=== PATIENT | male | born 1970 | race Caucasian/White ===

== ENCOUNTER 2017-12-12 20:57 | Inpatient (IN) | payer MEDICAID ==
[~2017-12-12] VITALS: Ht 182.9 cm; Wt 78.7 kg
[2017-12-12] MEDS ORDERED: HYDROcodone/acetaminophen 10/325mg tab PO ONE (21:55)
[2017-12-12] MEDS ORDERED: normal saline 1000ML IV soln IV ONE (22:45)
[2017-12-12] MEDS ORDERED: vancomycin/NS 1 GM ADD-VANTAGE 250 ML IV ONE (22:45)
[2017-12-12] MEDS ORDERED: CefTRIAXone 2gm/NS 100ml IVPB 100 ML IV ONE (22:45)
[2017-12-12 23:06] LABS: BASOPHILS # (AUTO) 0.1 X10'3 (0-0.2); BASOPHILS % (AUTO) 0.4 % (0-1); EOSINOPHILS # (AUTO) 0.3 X10'3 (0-0.9); EOSINOPHILS % (AUTO) 2.8 % (0-6); HEMATOCRIT 40.5 % (42.0-52.0); HEMOGLOBIN 13.7 g/dl (14.0-17.9); LYMPHOCYTES # (AUTO) 1.9 X10'3 (1.1-4.8); LYMPHOCYTES % (AUTO) 15.6 % (21-51); MEAN CORPUSCULAR HEMOGLOBIN 30.3 PG (27.0-31.0); MEAN CORPUSCULAR HGB CONC 33.8 % (33.0-36.5); MEAN CORPUSCULAR VOLUME 89.8 FL (78-98); MEAN PLATELET VOLUME 7.8 FL (7.4-10.4); MONOCYTES # (AUTO) 1.1 X10'3 (0-0.9); MONOCYTES % (AUTO) 8.9 % (2-12); NEUTROPHILS # (AUTO) 8.9 X10'3 (1.8-7.7); NEUTROPHILS % (AUTO) 72.3 % (42-75); PLATELET COUNT 321 X10'3 (140-440); RED BLOOD COUNT 4.51 X10'6 (4.70-6.10); RED CELL DISTRIBUTION WIDTH 12.9 % (11.5-14.5); WHITE BLOOD COUNT 12.3 X10'3 (4.5-11.0)
[2017-12-12 23:17] LABS: INR 0.9 INR; PARTIAL THROMBOPLASTIN TIME 32 SECONDS (22-32); PROTHROMBIN TIME 9.6 SECONDS (9.0-12.0)
[2017-12-12 23:21] LABS: ALANINE AMINOTRANSFERASE 61 U/L (12-78); ALBUMIN 3.2 G/DL (3.4-5.0); ALBUMIN/GLOBULIN RATIO 0.8 (1.1-1.5); ALKALINE PHOSPHATASE 93 IU/L (46-116); ANION GAP 8 (8-16); ASPARTATE AMINO TRANSFERASE 56 U/L (10-37); BILIRUBIN,TOTAL 0.3 MG/DL (0.1-1.0); BLOOD UREA NITROGEN 19 MG/DL (7-18); BUN/CREATININE RATIO 17.3 (5.4-32.0); CALCIUM 8.8 MG/DL (8.5-10.1); CHLORIDE 106 MMOL/L (99-107); GLUCOSE 149 MG/DL (70-104); MAGNESIUM 2.1 MG/DL (1.5-2.4); POTASSIUM 3.9 MMOL/L (3.5-5.1); SODIUM 143 MMOL/L (135-145); TOTAL CARBON DIOXIDE 29.2 MMOL/L (24-32); TOTAL PROTEIN 7.2 G/DL (6.4-8.2); eGFR 72 ML/MIN
[2017-12-13] MEDS ORDERED: magnesium Cl slow-release 64mg tablet PO PRN (01:35)
[2017-12-13] MEDS ORDERED: HYDROmorphone 1 mg/ml syringe IV PRN ×2 (01:35)
[2017-12-13] MEDS ORDERED: potassium Cl 20 mEq SR tablet PO PRN ×2 (01:35)
[2017-12-13] MEDS ORDERED: HYDROcodone/acetaminophen 5mg/325mg tablet PO PRN (01:35)
[2017-12-13] MEDS ORDERED: mag hydrox/Alum hydrox/simeth 30ml oral suspension PO PRN (01:35)
[2017-12-13] MEDS ORDERED: magnesium hydroxide 30ml (MOM) UD suspension PO PRN (01:35)
[2017-12-13] MEDS ORDERED: magnesium 2GM in 50ml NS 50 ML IV PRN (01:35)
[2017-12-13] MEDS ORDERED: potassium Cl 40MEQ/NS 500ml 500 ML IV PRN ×2 (01:35)
[2017-12-13] MEDS ORDERED: ondansetron/PF 4mg/2ml inj IV PRN (01:35)
[2017-12-13] MEDS ORDERED: magnesium 4gm in 100ml NS 100 ML IV PRN (01:35)
[2017-12-13 01:44] LABS: CLARITY,URINE Clear (Clear); COLOR,URINE Yellow (Yellow); GLUCOSE, URINE Negative (Neg); KETONES,URINE Negative (Neg); LEUKOCYTE ESTERASE ,URINE Negative (Neg); NITRITES, URINE Negative (Neg); OCCULT BLOOD,URINE Negative (Neg); PH,URINE 6.5 (4.8-8.0); PROTEIN,URINE Negative (Neg)
[2017-12-13 01:47] LABS: UA COLLECTION TYPE CLN CATCH MIDSTREAM
[2017-12-13] MEDS: normal saline 1000ml 1,000 ML IV SCH ×3 (02:24→21:18)
[2017-12-13 02:59] VITALS: BP 123/60
[2017-12-13 05:00] VITALS: BP 129/78
[2017-12-13] MEDS: K and/or MAG REPLACEMENT MC SCH (07:51)
[2017-12-13] MEDS: heparin, porcine 5000 units/ml vial SQ SCH ×2 (07:56→20:19)
[2017-12-13] MEDS: acetaminophen 325mg tablet PO PRN ×2 (07:57→16:06)
[2017-12-13 10:00] VITALS: BP 121/71
[2017-12-13] MEDS ORDERED: vancomycin inj 1,250 MG in normal saline 250ml IV soln 250 ML IV SCH (12:00)
[2017-12-13] MEDS ORDERED: vancomycin/NS 1 GM ADD-VANTAGE 250 ML IV SCH (12:00)
[2017-12-13] MEDS ORDERED: NO HOME MEDS (14:05)
[2017-12-13] MEDS ORDERED: LACTOBACILLUS RHAMNOSUS GG 15 billion unit sprinkle caps PO SCH (17:30)
[2017-12-13 18:31] VITALS: BP 118/69
[2017-12-13] MEDS ORDERED: CefTRIAXone 2gm/NS 100ml IVPB 100 ML IV SCH (20:00)
[2017-12-13] MEDS ORDERED: ciprofloxacin 500MG tablet PO SCH (20:00)
[2017-12-13] MEDS ORDERED: ciprofloxacin 250mg tablet PO SCH (20:05)
[2017-12-13] MEDS: ciprofloxacin 250mg tablet PO SCH (20:19)
[2017-12-13] MEDS ORDERED: temazepam 15mg capsule PO PRN (21:00)
[2017-12-13 22:00] VITALS: BP 109/74
[2017-12-14] MEDS: HYDROcodone/acetaminophen 10/325mg tab PO PRN ×2 (01:53→17:21)
[2017-12-14 06:00] VITALS: BP 121/76
[2017-12-14 07:06] LABS: BASOPHILS # (AUTO) 0.1 X10'3 (0-0.2); BASOPHILS % (AUTO) 0.5 % (0-1); EOSINOPHILS % (AUTO) 0.1 % (0-6); HEMATOCRIT 41.5 % (42.0-52.0); HEMOGLOBIN 13.8 g/dl (14.0-17.9); LYMPHOCYTES # (AUTO) 1.9 X10'3 (1.1-4.8); LYMPHOCYTES % (AUTO) 11.2 % (21-51); MEAN CORPUSCULAR HEMOGLOBIN 30.4 PG (27.0-31.0); MEAN CORPUSCULAR HGB CONC 33.3 % (33.0-36.5); MEAN CORPUSCULAR VOLUME 91.3 FL (78-98); MEAN PLATELET VOLUME 7.9 FL (7.4-10.4); MONOCYTES # (AUTO) 1.7 X10'3 (0-0.9); NEUTROPHILS # (AUTO) 13.5 X10'3 (1.8-7.7); NEUTROPHILS % (AUTO) 78.2 % (42-75); PLATELET COUNT 299 X10'3 (140-440); RED BLOOD COUNT 4.55 X10'6 (4.70-6.10); RED CELL DISTRIBUTION WIDTH 12.8 % (11.5-14.5); WHITE BLOOD COUNT 17.2 X10'3 (4.5-11.0)
[2017-12-14 07:36] LABS: ALANINE AMINOTRANSFERASE 47 U/L (12-78); ALBUMIN 2.6 G/DL (3.4-5.0); ALBUMIN/GLOBULIN RATIO 0.6 (1.1-1.5); ALKALINE PHOSPHATASE 84 IU/L (46-116); ANION GAP 6 (8-16); ASPARTATE AMINO TRANSFERASE 19 U/L (10-37); BILIRUBIN,TOTAL 0.5 MG/DL (0.1-1.0); BLOOD UREA NITROGEN 12 MG/DL (7-18); CALCIUM 8.5 MG/DL (8.5-10.1); CHLORIDE 106 MMOL/L (99-107); GLUCOSE 97 MG/DL (70-104); MAGNESIUM 1.7 MG/DL (1.5-2.4); SODIUM 141 MMOL/L (135-145); TOTAL CARBON DIOXIDE 29.4 MMOL/L (24-32); TOTAL PROTEIN 6.8 G/DL (6.4-8.2); eGFR > 90 ML/MIN
[2017-12-14] MEDS: LACTOBACILLUS RHAMNOSUS GG 15 billion unit sprinkle caps PO SCH (07:46)
[2017-12-14] MEDS: heparin, porcine 5000 units/ml vial SQ SCH ×2 (07:47→19:38)
[2017-12-14] MEDS: ciprofloxacin 250mg tablet PO SCH ×2 (07:47→19:42)
[2017-12-14] MEDS: normal saline 1000ml 1,000 ML IV SCH ×2 (07:54→17:32)
[2017-12-14] MEDS: K and/or MAG REPLACEMENT MC SCH (07:58)
[2017-12-14 11:00] VITALS: BP 115/69
[2017-12-14 18:00] VITALS: BP 113/80
[2017-12-14 22:00] VITALS: BP 128/77
[2017-12-14] MEDS ORDERED: VANCOMYCIN LEVEL IV NR (23:30)
[2017-12-15] MEDS: normal saline 1000ml 1,000 ML IV SCH ×2 (04:06→13:32)
[2017-12-15 05:57] LABS: BASOPHILS # (AUTO) 0.1 X10'3 (0-0.2); EOSINOPHILS # (AUTO) 0.2 X10'3 (0-0.9); EOSINOPHILS % (AUTO) 1.3 % (0-6); HEMATOCRIT 40.9 % (42.0-52.0); HEMOGLOBIN 13.8 g/dl (14.0-17.9); LYMPHOCYTES # (AUTO) 2.1 X10'3 (1.1-4.8); LYMPHOCYTES % (AUTO) 14.4 % (21-51); MEAN CORPUSCULAR HEMOGLOBIN 30.5 PG (27.0-31.0); MEAN CORPUSCULAR HGB CONC 33.8 % (33.0-36.5); MEAN CORPUSCULAR VOLUME 90.4 FL (78-98); MEAN PLATELET VOLUME 7.9 FL (7.4-10.4); MONOCYTES # (AUTO) 1.3 X10'3 (0-0.9); NEUTROPHILS # (AUTO) 10.8 X10'3 (1.8-7.7); NEUTROPHILS % (AUTO) 74.3 % (42-75); PLATELET COUNT 334 X10'3 (140-440); RED BLOOD COUNT 4.52 X10'6 (4.70-6.10); RED CELL DISTRIBUTION WIDTH 12.8 % (11.5-14.5); WHITE BLOOD COUNT 14.6 X10'3 (4.5-11.0)
[2017-12-15 06:00] VITALS: BP 119/70
[2017-12-15 06:26] LABS: ALANINE AMINOTRANSFERASE 51 U/L (12-78); ALBUMIN 2.5 G/DL (3.4-5.0); ALBUMIN/GLOBULIN RATIO 0.6 (1.1-1.5); ALKALINE PHOSPHATASE 84 IU/L (46-116); ANION GAP 7 (8-16); ASPARTATE AMINO TRANSFERASE 26 U/L (10-37); BILIRUBIN,TOTAL 0.2 MG/DL (0.1-1.0); BLOOD UREA NITROGEN 12 MG/DL (7-18); BUN/CREATININE RATIO 13.3 (5.4-32.0); CALCIUM 8.4 MG/DL (8.5-10.1); CHLORIDE 106 MMOL/L (99-107); GLUCOSE 111 MG/DL (70-104); MAGNESIUM 1.9 MG/DL (1.5-2.4); POTASSIUM 3.7 MMOL/L (3.5-5.1); SODIUM 142 MMOL/L (135-145); TOTAL CARBON DIOXIDE 28.6 MMOL/L (24-32); TOTAL PROTEIN 6.8 G/DL (6.4-8.2); eGFR > 90 ML/MIN
[2017-12-15] MEDS: K and/or MAG REPLACEMENT MC SCH (08:00)
[2017-12-15] MEDS: LACTOBACILLUS RHAMNOSUS GG 15 billion unit sprinkle caps PO SCH (08:14)
[2017-12-15] MEDS: ciprofloxacin 250mg tablet PO SCH (08:15)
[2017-12-15] MEDS: heparin, porcine 5000 units/ml vial SQ SCH (08:16)
[2017-12-15 10:00] VITALS: BP 138/77
[2017-12-15] MEDS ORDERED: LEVO500T2 PO (17:38)
[2017-12-15] MEDS ORDERED: SULF1TAB49 PO (17:38)
== END 2017-12-15 18:00 | disposition left against medical advice (07) | DRG 501 ==
LOC: ER 20:58 → ED HOLD 12-13 01:32 → ORTHO 4S 12-13 02:25
PROVIDERS: ADMIT Internal Medicine; ATTEND Internal Medicine
DX: N45.1 Epididymitis (principal); R65.10 Systemic inflammatory response syndrome (SIRS) of non-infectious origin without acute organ dysfunction; E86.0 Dehydration; F41.9 Anxiety disorder, unspecified; D64.9 Anemia, unspecified; N43.3 Hydrocele, unspecified; R03.0 Elevated blood-pressure reading, without diagnosis of hypertension; R00.0 Tachycardia, unspecified; F17.210 Nicotine dependence, cigarettes, uncomplicated
CPT/HCPCS: 36415; 71045; 76870; 80053; 81003; 83605; 83735; 84145; 85025; 85610; 85730; 87040; 87070; 87491; 93005; 96365; 96367; 99285; A6212; A6258; J0696; J1644; J3370; J7030

== ENCOUNTER 2019-03-14 21:49 | Emergency (ER) | payer MEDICAID ==
[~2019-03-14] VITALS: Ht 182.9 cm; Wt 64.9 kg
[~2019-03-14 21:49] MED LIST: IBUP-1986 PO; NO HOME MEDS
[2019-03-14 22:48] LABS: BASOPHILS % (AUTO) 0.1 % (0-1); EOSINOPHILS % (AUTO) 0.1 % (0-6); HEMATOCRIT 49.1 % (42.0-52.0); HEMOGLOBIN 16.5 g/dl (14.0-17.9); LYMPHOCYTES # (AUTO) 0.7 X10'3 (1.1-4.8); LYMPHOCYTES % (AUTO) 4.2 % (21-51); MEAN CORPUSCULAR HEMOGLOBIN 30.4 PG (27.0-31.0); MEAN CORPUSCULAR HGB CONC 33.6 g/dL (33.0-36.5); MEAN CORPUSCULAR VOLUME 90.4 FL (78-98); MONOCYTES # (AUTO) 0.7 X10'3 (0-0.9); MONOCYTES % (AUTO) 4.1 % (2-12); NEUTROPHILS # (AUTO) 15.8 X10'3 (1.8-7.7); NEUTROPHILS % (AUTO) 91.5 % (42-75); PLATELET COUNT 238 X10'3 (140-440); RED BLOOD COUNT 5.43 X10'6 (4.70-6.10); RED CELL DISTRIBUTION WIDTH 12.8 % (11.5-14.5); WHITE BLOOD COUNT 17.3 X10'3 (4.5-11.0)
[2019-03-14] MEDS ORDERED: normal saline 1000ML IV soln IV ONE (22:50)
[2019-03-14] MEDS ORDERED: CefTRIAXone 2gm/D5W 50ml 50 ML IV ONE (22:50)
[2019-03-14] MEDS ORDERED: acetaminophen 325mg tablet PO STA (22:50)
[2019-03-14 23:10] LABS: INR 1.1 INR; PARTIAL THROMBOPLASTIN TIME 36 SECONDS (22-32)
--- NOTE | 2019-03-14 23:11 | NUR ---
PT UNABLE TO VOID FOR UA. URINAL AT BEDSIDE FOR PT.
[2019-03-14 23:43] LABS: ALANINE AMINOTRANSFERASE 41 U/L (12-78); ALBUMIN 3.6 G/DL (3.4-5.0); ALBUMIN/GLOBULIN RATIO 0.9 (1.1-1.5); ALKALINE PHOSPHATASE 85 IU/L (46-116); ANION GAP 9 (8-16); ASPARTATE AMINO TRANSFERASE 31 U/L (10-37); BILIRUBIN,TOTAL 0.6 MG/DL (0.1-1.0); BLOOD UREA NITROGEN 19 MG/DL (7-18); BUN/CREATININE RATIO 13.2 (5.4-32.0); CALCIUM 9.2 MG/DL (8.5-10.1); CHLORIDE 97 MMOL/L (99-107); CREATININE 1.44 MG/DL (0.60-1.10); GLUCOSE 107 MG/DL (70-104); SODIUM 131 MMOL/L (135-145); TOTAL CARBON DIOXIDE 25.4 MMOL/L (24-32); TOTAL PROTEIN 7.5 G/DL (6.4-8.2); eGFR 53 ML/MIN
[2019-03-15 00:05] LABS: CLARITY,URINE CLEAR (Clear); COLOR,URINE YELLOW (Yellow); GLUCOSE, URINE NEGATIVE (Neg); KETONES,URINE 15 mg/dl (Neg); LEUKOCYTE ESTERASE ,URINE NEGATIVE (Neg); NITRITES, URINE NEGATIVE (Neg); OCCULT BLOOD,URINE NEGATIVE (Neg); PROTEIN,URINE 30 mg/dl (Neg)
[2019-03-15 00:15] LABS: UA COLLECTION TYPE CLN CATCH MIDSTREAM
[2019-03-15 00:16] LABS: BACTERIA,URINE FEW /HPF (Neg); MUCUS STRANDS FEW /LPF (Neg); RBC,URINE NONE SEEN /HPF (0-2); SQUAMOUS EPITHELIAL CELL,UR FEW /LPF (FEW); WBC,URINE 0-4 /HPF (0-4)
[2019-03-15] MEDS ORDERED: SULF1TAB49 PO (00:27)
[2019-03-15] MEDS ORDERED: CEPH500C5 PO (00:27)
[2019-03-15 00:32] LABS: URINE AMPHETAMINE SCREEN POSITIVE (Neg); URINE BARBITUATE SCREEN NEGATIVE (Neg); URINE BENZODIAZEPINES SCREEN NEGATIVE (Neg); URINE CANNABINOID SCREEN NEGATIVE (Neg); URINE COCAINE SCREEN NEGATIVE (Neg); URINE METHADONE SCREEN NEGATIVE (Neg); URINE OPIATE SCREEN NEGATIVE (Neg); URINE PHENCYCLIDINE SCREEN NEGATIVE (Neg)
[2019-03-15 00:37] VITALS: BP 127/87
== END 2019-03-15 00:44 | disposition home or self-care (01) ==
LOC: ER 21:49
DX: L03.116 Cellulitis of left lower limb (principal); R42 Dizziness and giddiness; R50.9 Fever, unspecified; R00.0 Tachycardia, unspecified; R22.2 Localized swelling, mass and lump, trunk; F15.90 Other stimulant use, unspecified, uncomplicated; Z79.2 Long term (current) use of antibiotics
CPT/HCPCS: 36415; 71045; 80053; 80305; 81001; 83605; 84145; 84484; 85025; 85610; 85730; 87040; 93005; 96365; 99284; J0696; J7030; 81003

== ENCOUNTER 2019-11-11 19:51 | Inpatient (IN) | payer MEDICAID ==
[~2019-11-11] VITALS: Ht 182.9 cm; Wt 88.2 kg
--- NOTE | 2019-11-11 20:14 | NUR ---
PT REPORTS TO METH USE 2 DAYS AGO.
[2019-11-11] MEDS ORDERED: normal saline 1000ml 1,000 ML IV ONE (20:20)
[2019-11-11] MEDS ORDERED: LORazepam 2 mg/ml vial IV ONE (20:20)
[2019-11-11] MEDS ORDERED: ondansetron/PF 4mg/2ml inj IV ONE (20:20)
[2019-11-11] MEDS ORDERED: ketorolac trometh. 30mg/ml inj. IV ONE (20:20)
[2019-11-11 20:23] LABS: BASOPHILS # (AUTO) 0.1 X10'3 (0-0.2); BASOPHILS % (AUTO) 0.5 % (0-1); EOSINOPHILS # (AUTO) 0.1 X10'3 (0-0.9); EOSINOPHILS % (AUTO) 0.5 % (0-6); HEMATOCRIT 41.5 % (42.0-52.0); HEMOGLOBIN 14.1 g/dl (14.0-17.9); LYMPHOCYTES # (AUTO) 1.2 X10'3 (1.1-4.8); LYMPHOCYTES % (AUTO) 8.8 % (21-51); MEAN CORPUSCULAR HGB CONC 33.9 g/dL (33.0-36.5); MEAN CORPUSCULAR VOLUME 91.4 FL (78-98); MEAN PLATELET VOLUME 8.3 FL (7.4-10.4); MONOCYTES # (AUTO) 1.5 X10'3 (0-0.9); MONOCYTES % (AUTO) 11.5 % (2-12); NEUTROPHILS # (AUTO) 10.6 X10'3 (1.8-7.7); NEUTROPHILS % (AUTO) 78.7 % (42-75); PLATELET COUNT 236 X10'3 (140-440); RED BLOOD COUNT 4.54 X10'6 (4.70-6.10); RED CELL DISTRIBUTION WIDTH 13.1 % (11.5-14.5); WHITE BLOOD COUNT 13.4 X10'3 (4.5-11.0)
--- NOTE | 2019-11-11 20:31 | NUR ---
Pt. transferred to CT at this time by tech.
[2019-11-11 20:40] LABS: ALANINE AMINOTRANSFERASE 323 U/L (12-78); ALBUMIN 4.1 G/DL (3.4-5.0); ALBUMIN/GLOBULIN RATIO 1.3 (1.1-1.5); ALKALINE PHOSPHATASE 68 IU/L (46-116); ANION GAP 13 (8-16); ASPARTATE AMINO TRANSFERASE 632 U/L (10-37); BILIRUBIN,TOTAL 1.5 MG/DL (0.1-1.0); BLOOD UREA NITROGEN 22 MG/DL (7-18); BUN/CREATININE RATIO 20.4 (5.4-32.0); CHLORIDE 99 MMOL/L (99-107); CREATININE 1.08 MG/DL (0.60-1.10); GLUCOSE 91 MG/DL (70-104); LIPASE 61 U/L (73-393); POTASSIUM 3.5 MMOL/L (3.5-5.1); SODIUM 135 MMOL/L (135-145); TOTAL CARBON DIOXIDE 23.4 MMOL/L (24-32); TOTAL PROTEIN 7.3 G/DL (6.4-8.2); eGFR 73 ML/MIN
--- NOTE | 2019-11-11 20:42 | NUR ---
Pt. returned to ED room 1 at this time.
[2019-11-11 21:03] LABS: URINE AMPHETAMINE SCREEN POSITIVE (Neg); URINE BARBITUATE SCREEN NEGATIVE (Neg); URINE BENZODIAZEPINES SCREEN NEGATIVE (Neg); URINE CANNABINOID SCREEN NEGATIVE (Neg); URINE COCAINE SCREEN NEGATIVE (Neg); URINE METHADONE SCREEN NEGATIVE (Neg); URINE OPIATE SCREEN NEGATIVE (Neg); URINE PHENCYCLIDINE SCREEN NEGATIVE (Neg)
[2019-11-11 21:16] LABS: CLARITY,URINE CLEAR (Clear); COLOR,URINE Amber (Yellow); GLUCOSE, URINE Negative (Neg); PROTEIN,URINE Trace mg/dl (Neg); UA COLLECTION TYPE CLN CATCH MIDSTREAM
[2019-11-11 21:17] LABS: KETONES,URINE >=80 mg/dl (Neg); LEUKOCYTE ESTERASE ,URINE NEGATIVE (Neg); NITRITES, URINE NEGATIVE (Neg); OCCULT BLOOD,URINE MODERATE (Neg)
[2019-11-11] MEDS ORDERED: normal saline 1000ML IV soln IVB ONE (21:25)
[2019-11-11] MEDS ORDERED: piperacillin/tazo 4.5gm/100ml 100 ML IV SCH (21:25)
[2019-11-11] MEDS ORDERED: morphine 4 MG/ML inj SYRINge IV ONE (21:25)
[2019-11-11 21:28] LABS: BACTERIA,URINE NONE SEEN /HPF (Neg); MUCUS STRANDS MANY /LPF (Neg); RBC,URINE 0-2 /HPF (0-2); SQUAMOUS EPITHELIAL CELL,UR NONE SEEN /LPF (FEW); WBC,URINE 0-4 /HPF (0-4)
[2019-11-11] MEDS ORDERED: piperacillin/tazo 4.5gm/100ml 100 ML IV ONE (21:31)
[2019-11-11] MEDS ORDERED: ringers solution, lacted 1,000 ML IV SCH (21:38)
[2019-11-11] MEDS ORDERED: fentaNYL/PF 50MCG/1 ML 2ML syringe IV PRN ×2 (21:40)
[2019-11-11] MEDS ORDERED: ondansetron/PF 4mg/2ml inj IV PRN ×2 (21:40→22:20)
[2019-11-11] MEDS ORDERED: morphine 4 MG/ML inj SYRINge IV PRN ×2 (21:40)
[2019-11-11] MEDS ORDERED: hydrALAZINE 20mg/ml inj. IV PRN (21:40)
[2019-11-11] MEDS ORDERED: labetalol 20mg/4ml (5mg/ml) syringe IV PRN (21:40)
[2019-11-11] MEDS ORDERED: rocuronium 10mg/ml inj IV ONE (22:06)
[2019-11-11] MEDS ORDERED: ondansetron/PF 4mg/2ml inj ONE (22:06)
[2019-11-11] MEDS ORDERED: midazolam 2 mg/2 ml injection ONE (22:06)
[2019-11-11] MEDS ORDERED: LIDOcaine 2% (20mg/ml) 5ml vial ONE (22:06)
[2019-11-11] MEDS ORDERED: dexamethasone sod phosphate 4mg/ml inj. ONE (22:06)
[2019-11-11] MEDS ORDERED: propofol inj 20 ML IV ONE (22:06)
[2019-11-11] MEDS ORDERED: fentaNYL/PF 50MCG/1 ML 2ML syringe ONE (22:06)
[2019-11-11] MEDS ORDERED: BUPIVAcaine/PF 2.5 mg/ml (0.25%) 30ml vial ONE (22:10)
--- NOTE | 2019-11-11 22:17 | NUR ---
OR TECHS ARRIVED. PT PREPPED AND TAKEN FOR SURGERY.
[2019-11-11] MEDS ORDERED: magnesium 4gm in 100ml NS 100 ML IV PRN (22:20)
[2019-11-11] MEDS ORDERED: potassium CL 10mEq/100ml bag 100 ML IV PRN ×2 (22:20)
[2019-11-11] MEDS ORDERED: acetaminophen 325mg tablet PO PRN (22:20)
[2019-11-11] MEDS ORDERED: potassium Cl 20 mEq SR tablet PO PRN ×2 (22:20)
[2019-11-11] MEDS ORDERED: magnesium Cl slow-release 64mg tablet PO PRN (22:20)
[2019-11-11] MEDS ORDERED: magnesium 2GM in 50ml NS 50 ML IV PRN (22:20)
[2019-11-11] MEDS ORDERED: glycopyrrolate 0.2mg/ml inj ONE (22:30)
[2019-11-11] MEDS ORDERED: sevoflurane 250ml liquid IH ONE (22:30)
[2019-11-11] MEDS ORDERED: ceFOXitin 2 GM ADDVANTGE BAG 50 ML IV ONE (22:33)
[2019-11-11] MEDS ORDERED: sugammadex 200mg/2ml injection IV ONE (23:07)
[2019-11-11 23:25] VITALS: BP 132/83
--- NOTE | 2019-11-11 23:25 | NUR ---
Received from OR via , accompanied by Anesthesiologist DR NIXON and report given by Anesthesiolgist. PT IS NOT RESPONDING TO VOICE, SNORING RESPIRATIONS, ORAL AIRWAY IN PLACE, SKIN WARM AND PINK, VSS, BILAT UE'S SCATTERED SCRATCHES, RIGHT UPPER THIGH/GROIN RED BRUISE, CROW SKIN, PIV RIGHT AC 20G, SCD'S, NO C/O PAIN.
[2019-11-11 23:35] VITALS: BP 129/81
--- NOTE | 2019-11-11 23:40 | NUR ---
ORAL AIRWAY REMOVED, PT MOVING EXT X 4, WAKING TO VOICE.
[2019-11-11 23:45] VITALS: BP 124/68
--- NOTE | 2019-11-11 23:51 | NUR ---
Received report from SAL Whitaker. Awaiting patient arrival to the unit.
[2019-11-11 23:55] VITALS: BP 129/65
--- NOTE | 2019-11-11 23:55 | NUR ---
Report called to receiving nurse. Transferred via BED Belongings . Special Issues communicated to receiving nurse ANA HUANG. PT IS SLEEPING WITH SNORING RESP, RESPONDS TO VOICE, SKIN WARM AND PINK, MOVING EXT X4, PIV PATENT, 3 BA'S ON ABD CD, NO C/O PAIN, VSS, MEETS DISCHARGE CRITERIA.
--- NOTE | 2019-11-12 00:20 | NUR ---
Patient arrived to the floor on hospital bed, placed in room 340A. Patient is resting comfortably on room air, in no apparent distress. Call light and items of frequent use within reach, will continue to monitor.
[2019-11-12 00:25] VITALS: BP 120/77
[2019-11-12] MEDS: normal saline 1000ml 1,000 ML IV SCH ×2 (04:56→08:19)
[2019-11-12 05:25] LABS: BASOPHILS % (AUTO) 0.3 % (0-1); EOSINOPHILS % (AUTO) 0 % (0-6); HEMATOCRIT 38.6 % (42.0-52.0); LYMPHOCYTES # (AUTO) 0.3 X10'3 (1.1-4.8); MEAN CORPUSCULAR HEMOGLOBIN 31.5 PG (27.0-31.0); MEAN CORPUSCULAR HGB CONC 33.7 g/dL (33.0-36.5); MEAN CORPUSCULAR VOLUME 93.4 FL (78-98); MEAN PLATELET VOLUME 9.1 FL (7.4-10.4); MONOCYTES % (AUTO) 7.8 % (2-12); NEUTROPHILS # (AUTO) 11.6 X10'3 (1.8-7.7); NEUTROPHILS % (AUTO) 89.9 % (42-75); PLATELET COUNT 191 X10'3 (140-440); RED BLOOD COUNT 4.13 X10'6 (4.70-6.10); RED CELL DISTRIBUTION WIDTH 13.2 % (11.5-14.5); WHITE BLOOD COUNT 12.9 X10'3 (4.5-11.0)
[2019-11-12 05:42] LABS: ALANINE AMINOTRANSFERASE 246 U/L (12-78); ALBUMIN 3.2 G/DL (3.4-5.0); ALBUMIN/GLOBULIN RATIO 1.1 (1.1-1.5); ALKALINE PHOSPHATASE 59 IU/L (46-116); ANION GAP 11 (8-16); ASPARTATE AMINO TRANSFERASE 387 U/L (10-37); BILIRUBIN,TOTAL 1.2 MG/DL (0.1-1.0); BLOOD UREA NITROGEN 18 MG/DL (7-18); BUN/CREATININE RATIO 17.6 (5.4-32.0); CALCIUM 8.1 MG/DL (8.5-10.1); CHLORIDE 104 MMOL/L (99-107); CREATININE 1.02 MG/DL (0.60-1.10); GLUCOSE 143 MG/DL (70-104); MAGNESIUM 1.8 MG/DL (1.5-2.4); POTASSIUM 3.8 MMOL/L (3.5-5.1); SODIUM 139 MMOL/L (135-145); TOTAL CARBON DIOXIDE 24.1 MMOL/L (24-32); TOTAL PROTEIN 6.1 G/DL (6.4-8.2); eGFR 78 ML/MIN
--- NOTE | 2019-11-12 06:30 | NUR ---
Problems reprioritized. Patient report given, questions answered & plan of care reviewed with SAL Carmona.
--- NOTE | 2019-11-12 06:30 | NUR ---
Patient in room [facility] 340. I have received report from Bryanna HUANG and had the opportunity to ask questions and assume patient care.
[2019-11-12 06:59] VITALS: BP 116/67
[2019-11-12] MEDS ORDERED: K and/or MAG REPLACEMENT MC SCH (08:00)
[2019-11-12] MEDS ORDERED: HYDR-4383 PO ×2 (10:38→10:40)
[2019-11-12 11:59] VITALS: BP 119/71
--- NOTE | 2019-11-12 14:03 | NUR ---
Patient discharged with all belongings. W/C to front lobby. Discharge paperwork gone over with pt and signed. Pt has friend to take him home.
== END 2019-11-12 14:02 | disposition home or self-care (01) | DRG 710 ==
LOC: ER 19:52 → SUR 3N 22:19 → OBSVTOIN 22:19 → UNDOADMOB 23:13 → SUR 3N 23:13
PROVIDERS: ADMIT Internal Medicine; ATTEND Family Medicine
PROC: 0DTJ4ZZ Resection of Appendix, Percutaneous Endoscopic Approach (ICD-10-PCS; principal; 2019-11-11 22:30)
DX: A41.9 Sepsis, unspecified organism (principal); G93.41 Metabolic encephalopathy; K35.30 Acute appendicitis with localized peritonitis, without perforation or gangrene; F15.90 Other stimulant use, unspecified, uncomplicated; F17.210 Nicotine dependence, cigarettes, uncomplicated; J45.909 Unspecified asthma, uncomplicated; N30.20 Other chronic cystitis without hematuria; Z66 Do not resuscitate; R94.5 Abnormal results of liver function studies
CPT/HCPCS: 36415; 74176; 80053; 80305; 81001; 82948; 83605; 83690; 83735; 85025; 86885; 86900; 86901; 87040; 87081; 96361; 96374; 96375; 99285; A4215; A4618; A7000; C9399; G0378; J0694; J1100; J1885; J2001; J2060; J2250; J2270; J2405; J2543; J2704; J3010; J3490; J7030; J7120

== ENCOUNTER 2019-11-13 18:48 | Emergency (ER) | payer MEDICAID ==
[~2019-11-13] VITALS: Ht 182.9 cm; Wt 88.0 kg
[~2019-11-13 18:48] MED LIST changes: +HYDR-4383 PO
[2019-11-13 19:29] LABS: BASOPHILS # (AUTO) 0.1 X10'3 (0-0.2); BASOPHILS % (AUTO) 0.4 % (0-1); EOSINOPHILS # (AUTO) 0.1 X10'3 (0-0.9); EOSINOPHILS % (AUTO) 0.4 % (0-6); LYMPHOCYTES # (AUTO) 0.5 X10'3 (1.1-4.8); LYMPHOCYTES % (AUTO) 3.8 % (21-51); MEAN CORPUSCULAR HEMOGLOBIN 31.8 PG (27.0-31.0); MEAN CORPUSCULAR HGB CONC 34.3 g/dL (33.0-36.5); MEAN CORPUSCULAR VOLUME 92.7 FL (78-98); MEAN PLATELET VOLUME 8.5 FL (7.4-10.4); MONOCYTES # (AUTO) 1.1 X10'3 (0-0.9); MONOCYTES % (AUTO) 8.4 % (2-12); NEUTROPHILS # (AUTO) 11.3 X10'3 (1.8-7.7); PLATELET COUNT 228 X10'3 (140-440); RED BLOOD COUNT 4.42 X10'6 (4.70-6.10); RED CELL DISTRIBUTION WIDTH 13.4 % (11.5-14.5)
[2019-11-13 19:42] LABS: PARTIAL THROMBOPLASTIN TIME 31 SECONDS (22-32)
[2019-11-13 19:46] LABS: ALANINE AMINOTRANSFERASE 168 U/L (12-78); ALBUMIN 3.1 G/DL (3.4-5.0); ALBUMIN/GLOBULIN RATIO 0.8 (1.1-1.5); ALKALINE PHOSPHATASE 70 IU/L (46-116); ANION GAP 4 (8-16); ASPARTATE AMINO TRANSFERASE 105 U/L (10-37); BILIRUBIN,TOTAL 0.7 MG/DL (0.1-1.0); BLOOD UREA NITROGEN 15 MG/DL (7-18); BUN/CREATININE RATIO 13.8 (5.4-32.0); CHLORIDE 101 MMOL/L (99-107); CREATININE 1.09 MG/DL (0.60-1.10); GLUCOSE 133 MG/DL (70-104); POTASSIUM 3.6 MMOL/L (3.5-5.1); SODIUM 137 MMOL/L (135-145); TOTAL CARBON DIOXIDE 31.8 MMOL/L (24-32); eGFR 72 ML/MIN
[2019-11-13] MEDS ORDERED: normal saline 1000ML IV soln IVB ONE (20:20)
[2019-11-13 20:37] LABS: CLARITY,URINE SLIGHTLY CLOUDY (Clear); COLOR,URINE AMBER (Yellow); GLUCOSE, URINE NEGATIVE (Neg); KETONES,URINE 15 mg/dl (Neg); LEUKOCYTE ESTERASE ,URINE NEGATIVE (Neg); NITRITES, URINE NEGATIVE (Neg); OCCULT BLOOD,URINE TRACE-INTACT (Neg); PROTEIN,URINE 100 mg/dl (Neg); UROBILINOGEN,URINE >=8.0 E.U/dL (0.2-1.0)
[2019-11-13 20:38] LABS: UA COLLECTION TYPE URINAL
[2019-11-13 21:07] LABS: RBC,URINE 0-2 /HPF (0-2); WBC,URINE 0-4 /HPF (0-4)
[2019-11-13 21:08] LABS: BACTERIA,URINE NONE SEEN /HPF (Neg); MUCUS STRANDS MANY /LPF (Neg); SPERM FEW /HPF (NEGATIVE); SQUAMOUS EPITHELIAL CELL,UR FEW /LPF (FEW)
[2019-11-13 21:49] VITALS: BP 142/87
--- NOTE | 2019-11-13 21:50 | NUR ---
DR ASKEW GAVE VERBAL TO DC 2ND LITER NS, AWARE HR 90
== END 2019-11-13 21:51 | disposition home or self-care (01) ==
LOC: ER 18:49
DX: G89.18 Other acute postprocedural pain (principal); F15.90 Other stimulant use, unspecified, uncomplicated; Z90.49 Acquired absence of other specified parts of digestive tract
CPT/HCPCS: 36415; 71045; 80053; 81001; 83605; 84145; 85025; 85610; 85730; 87040; 99284; J7030

== ENCOUNTER 2023-03-07 14:45 | Emergency (ER) | payer MEDICAID ==
[~2023-03-07] VITALS: Ht 182.9 cm; Wt 90.0 kg
[~2023-03-07 14:45] MED LIST changes: -NO HOME MEDS
[2023-03-07 14:47] VITALS: BP 140/88
[2023-03-07 15:17] LABS: BASOPHILS # (AUTO) 0.1 X10'3 (0-0.2); BASOPHILS % (AUTO) 0.6 % (0-1); EOSINOPHILS # (AUTO) 0.1 X10'3 (0-0.9); EOSINOPHILS % (AUTO) 0.4 % (0-6); HEMATOCRIT 48.8 % (42.0-52.0); HEMOGLOBIN 16.4 g/dl (14.0-17.9); LYMPHOCYTES # (AUTO) 2.1 X10'3 (1.1-4.8); LYMPHOCYTES % (AUTO) 14.8 % (21-51); MEAN CORPUSCULAR HEMOGLOBIN 30.6 PG (27.0-31.0); MEAN CORPUSCULAR HGB CONC 33.5 g/dL (33.0-36.5); MEAN CORPUSCULAR VOLUME 91.3 FL (78-98); MEAN PLATELET VOLUME 8.2 FL (7.4-10.4); MONOCYTES # (AUTO) 0.9 X10'3 (0-0.9); MONOCYTES % (AUTO) 6.4 % (2-12); NEUTROPHILS # (AUTO) 10.9 X10'3 (1.8-7.7); NEUTROPHILS % (AUTO) 77.8 % (42-75); PLATELET COUNT 324 X10'3 (140-440); RED BLOOD COUNT 5.35 X10'6 (4.70-6.10); RED CELL DISTRIBUTION WIDTH 13.6 % (11.5-14.5)
[2023-03-07 15:24] LABS: CLARITY,URINE CLOUDY (Clear); COLOR,URINE YELLOW (Yellow); GLUCOSE, URINE NEGATIVE (Neg); KETONES,URINE NEGATIVE (Neg); LEUKOCYTE ESTERASE ,URINE NEGATIVE (Neg); NITRITES, URINE NEGATIVE (Neg); OCCULT BLOOD,URINE NEGATIVE (Neg); PH,URINE 7.5 (4.8-8.0); PROTEIN,URINE NEGATIVE (Neg); UROBILINOGEN,URINE 0.2 E.U/dL (0.2-1.0)
[2023-03-07 15:31] LABS: ALANINE AMINOTRANSFERASE 50 U/L (12-78); ALBUMIN 4.3 G/DL (3.4-5.0); ALBUMIN/GLOBULIN RATIO 1.2 (1.1-1.5); ALKALINE PHOSPHATASE 88 IU/L (46-116); ANION GAP 14 (8-16); ASPARTATE AMINO TRANSFERASE 36 U/L (10-37); BILIRUBIN,TOTAL 0.6 MG/DL (0.1-1.0); BLOOD UREA NITROGEN 16 MG/DL (7-18); CALCIUM 9.4 MG/DL (8.5-10.1); CHLORIDE 100 MMOL/L (99-107); CREATININE 1.33 MG/DL (0.60-1.10); GLUCOSE 171 MG/DL (70-104); LIPASE 82 U/L (73-393); SODIUM 137 MMOL/L (135-145); TOTAL CARBON DIOXIDE 22.7 MMOL/L (24-32); TOTAL PROTEIN 7.9 G/DL (6.4-8.2); eGFR 57 ML/MIN
[2023-03-07 15:34] LABS: POTASSIUM 2.9 MMOL/L (3.5-5.1)
[2023-03-07 15:34] LABS: UA COLLECTION TYPE CLN CATCH MIDSTREAM
[2023-03-07 15:35] LABS: AMORPHOUS PHOSPHATES 3+; SQUAMOUS EPITHELIAL CELL,UR MODERATE /LPF (FEW)
[2023-03-07 15:36] LABS: HYALINE CASTS 0-3 /LPF (NEGATIVE)
[2023-03-07 15:37] LABS: BACTERIA,URINE FEW /HPF (Neg); RBC,URINE 0-2 /HPF (0-2); WBC,URINE 0-4 /HPF (0-4)
--- NOTE | 2023-03-07 19:00 | NUR ---
His phone number states mailbox not set up and the relatives phone number just rings. Went to but choose not to leave a .
== END 2023-03-07 19:13 | disposition left against medical advice (07) ==
LOC: ER 14:45
DX: R10.13 Epigastric pain (principal); Z53.21 Procedure and treatment not carried out due to patient leaving prior to being seen by health care provider
CPT/HCPCS: 36415; 80053; 81001; 83690; 85025; 99281